=== PATIENT | female | born 1990 | race Caucasian/White ===

== ENCOUNTER 2020-11-08 00:12 | Inpatient (IN) | payer MEDICAID, OTHER ==
[2020-11-08] MEDS ORDERED: LACTATED RINGERS 1,000 ML ONE (01:10)
[2020-11-08] MEDS ORDERED: ONDANSETRON 4 MG/2 ML INJ IV PRN ×2 (01:36→16:00)
[2020-11-08] MEDS ORDERED: miSOPROStol 200 MCG TAB PR PRN (01:36)
[2020-11-08] MEDS ORDERED: LOPERAMIDE 2 MG CAP PO PRN (01:36)
[2020-11-08] MEDS ORDERED: OXYTOCIN 10 UNIT/1 ML INJ IM PRN (01:36)
[2020-11-08] MEDS ORDERED: METHYLERGONOVINE MALEATE 0.2 MG/ML VIAL IM PRN (01:36)
[2020-11-08] MEDS ORDERED: BUTORPHANOL 2 MG/1 ML INJ IV PRN ×2 (01:36→02:14)
[2020-11-08] MEDS ORDERED: ePHEDrine SULFATE 50 MG/1 ML INJ IV PRN ×2 (01:36→15:30)
[2020-11-08] MEDS ORDERED: CARBOPROST TROMETHAMINE 250 MCG/1 ML INJ IM PRN (01:36)
[2020-11-08] MEDS ORDERED: TERBUTALINE 1 MG/1 ML INJ SUB-Q PRN ×2 (01:36→02:14)
[2020-11-08] MEDS ORDERED: LIDOCAINE (2%) 20 MG/1 ML VIAL 20 ML MDV INFILTRATI ONE ×3 (01:36→13:30)
[2020-11-08] MEDS ORDERED: MINERAL OIL 30 ML ORAL LIQD PO PRN (01:36)
[2020-11-08] MEDS: LACTATED RINGERS 1,000 ML IV SCH ×3 (02:00→11:36)
[2020-11-08] MEDS ORDERED: OXYTOCIN DRIP 30 UNITS/500 ML BAG IV SCH ×2 (02:00)
[2020-11-08 02:11] LABS: Hematocrit 29.9 % (30.3-42.9); Hemoglobin 10.3 gm/dl (10.1-14.3); Mean Corpuscular HGB Conc 34 % (30-34); Mean Corpuscular Volume 76 fl (79-97); Platelet Count 324 K/mm3 (140-440); Red Blood Count 3.95 M/mm3 (3.65-5.03); Red Cell Distribution Width 16.6 % (13.2-15.2)
[2020-11-08] MEDS ORDERED: ACETAMINOPHEN 325 MG TAB PO PRN (02:14)
[2020-11-08] MEDS ORDERED: fentaNYL 100 MCG/2 ML INJ IV PRN (02:14)
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
[2020-11-08] MEDS: BUTORPHANOL 2 MG/1 ML INJ IV PRN ×2 (09:23→13:08)
[2020-11-08] MEDS ORDERED: fentaNYL-BUPIV 2 MCG/ML-0.125% 200 MCG/100 ML BAG EPIDURAL ONE (13:53)
--- NOTE | 2020-11-08 14:15 | Anesthesia Consultation ---
Anesthesia Consult and Med Hx Date of service: 11/08/20 - Airway Anesthetic Teeth Evaluation: Good ROM Head & Neck: Adequate Mental/Hyoid Distance: Adequate Mallampati Class: Class II Intubation Access Assessment: Good - Pulmonary Exam CTA: Yes - Cardiac Exam Cardiac Exam: RRR - Pre-Operative Health Status Proposed Anesthetic Plan: Epidural - Pulmonary Hx Asthma: No - Cardiovascular System Hx Hypertension: No - Other Systems Hx Alcohol Use: No
--- NOTE | 2020-11-08 14:20 | Progress Note ---
Labor Epidural - Labor Epidural Start Time: 13:50 Stop Time: 14:05 Performed by:: ROCIO BOLTON Procedure: Patient is requesting epidural for labor and pain. H&P, labs were reviewed. Patient IDed, H&P reviewed, all questions and concerns were answered, and consent was signed. Timeout was performed at bedside. Patient in sitting position. Sterile prep and drape was performed. 3ml of 1% lidocaine skin wheal at L[3]- L [4]. 18-gauge Tuohy epidural needle was advanced to loss of resistance with air technique cm. Negative CSF negative blood. Epidural catheter advanced to [16] centimeters. [negative] Aspiration [negative] test dose. Sterile dressing applied. Patient tolerated procedure.
[2020-11-08] MEDS ORDERED: NALOXONE 2 MG/2 ML INJ IV PRN (15:00)
--- NOTE | 2020-11-08 15:21 | Procedure Note ---
OB Delivery Note - Delivery Date of Delivery: 11/08/20 Surgeon: LORA GRIER Estimated blood loss: other (150 cc) - Vaginal Delivery presentation: vertex Delivery position: OA Intrapartum events: none Delivery induction: none Delivery augmentation: pitocin Delivery monitor: external FHT, external uterine Route of delivery: Delivery placenta: spontaneous Delivery cord: 3 umbilical vessels Episiotomy: none Delivery laceration: none Anesthesia: epidural Delivery comments: Spontaneous vaginal delivery at 14:59 of liveborn male weighing 5 lb. 14 oz. over intact perineum with apgars of 8/9. Tight nuchal cord and body cord. Baby placed skin to skin with mom immediately after delivery and bulb suctioned, dried with warm blanket, and stimulated. Spontaneous cry and respirations. 3 vessel cord double clamped and cut and baby taken to radiant warmer for further suctioning. Spontaneous delivery of intact placenta and membranes by hammer mechanism at 15:01. Pitocin to IV fluids after delivery of placenta. EBL 150 cc. Fundus firm and midline. No lacerations noted. Sponge count correct. Mother and baby stable in birthing room.
[2020-11-08] MEDS ORDERED: fentaNYL-BUPIV 2 MCG/ML-0.125% 200 MCG/100 ML BAG EPIDURAL SCH (15:30)
[2020-11-08] MEDS ORDERED: diphenhydrAMINE 25 MG CAP PO PRN (16:00)
[2020-11-08] MEDS ORDERED: WITCH HAZEL/ GLYCERIN PAD TP PRN (16:00)
[2020-11-08] MEDS ORDERED: HYDROCORTISONE 25 MG RECTAL SUPP PR PRN (16:00)
[2020-11-08] MEDS ORDERED: LANOLIN/ZINC/DIMETHICONE (LANSINOH) 7 GM TP PRN (16:00)
[2020-11-08] MEDS: HYDROcodone/ACETAMINOPHEN 5-325 MG TAB PO PRN (19:18)
[2020-11-08] MEDS: DOCUSATE SODIUM 100 MG CAP PO SCH (21:30)
[2020-11-08] MEDS ORDERED: MAGNESIUM HYDROXIDE (MOM) ORAL LIQD UDC PO PRN (22:00)
[2020-11-09] MEDS: HYDROcodone/ACETAMINOPHEN 5-325 MG TAB PO PRN ×2 (05:46→18:30)
[2020-11-09 05:58] LABS: Hematocrit 29.3 % (30.3-42.9); Hemoglobin 9.5 gm/dl (10.1-14.3)
--- NOTE | 2020-11-09 09:51 | Progress Note ---
Assessment and Plan PPD#1 Continue routine PP care plan for d/c to home tomorrow Herbert Perera MD Subjective - Subjective Date of service: 11/09/20 Interval history: continue routine PP care. Discharge to home tomorrow Herbert Perera MD Patient reports: appetite normal, voiding normally, pain well controlled, ambulating normally : doing well Objective - Vital Signs Latest vital signs: Vital Signs Temp Pulse Resp BP BP Pulse Ox Pulse Ox 11/09/20 06:46 18 11/09/20 05:46 18 11/09/20 00:36 98.0 F 97 H 20 105/66 97 11/08/20 21:00 100 11/08/20 20:59 98.2 F 96 H 18 105/71 97 11/08/20 20:18 18 11/08/20 16:55 98.9 F 90 16 115/69 100 100 11/08/20 16:17 98.3 F 74 14 112/71 99 11/08/20 16:16 85 112/71 11/08/20 16:12 88 100 11/08/20 16:07 84 99 11/08/20 16:02 84 99 11/08/20 15:57 89 99 11/08/20 15:52 81 99 11/08/20 15:50 87 93 11/08/20 15:47 74 99 11/08/20 15:42 72 99 11/08/20 15:37 73 100/59 98 11/08/20 15:32 73 99 11/08/20 15:27 83 99 11/08/20 15:22 85 101/68 99 11/08/20 15:17 83 98 11/08/20 15:14 26 L 80 L 11/08/20 15:12 84 98 11/08/20 15:07 83 101/67 96 11/08/20 15:06 88 11/08/20 14:58 70 83 L 11/08/20 14:54 82 98 11/08/20 14:52 83 119/75 11/08/20 14:49 80 97 11/08/20 14:44 84 99 11/08/20 14:39 76 98 11/08/20 14:36 75 113/71 11/08/20 14:34 76 98 11/08/20 14:31 76 105/61 11/08/20 14:29 79 97 11/08/20 14:27 80 111/62 11/08/20 14:24 84 97 11/08/20 14:22 98.4 F 78 14 99/55 100 11/08/20 14:21 77 99/55 11/08/20 14:19 84 98 11/08/20 14:16 78 113/66 11/08/20 14:14 77 99 11/08/20 14:10 83 123/72 11/08/20 14:09 84 99 11/08/20 14:08 80 120/69 11/08/20 14:05 84 135/74 11/08/20 14:04 85 99 11/08/20 14:01 73 113/68 11/08/20 13:59 86 99 11/08/20 13:58 81 115/65 11/08/20 13:55 83 111/60 11/08/20 13:53 77 111/62 11/08/20 13:23 77 112/65 11/08/20 12:27 98.0 F 81 16 108/75 11/08/20 12:26 81 108/75 11/08/20 12:22 74 107/69 11/08/20 11:22 75 109/64 11/08/20 10:21 103 H 117/67 Intake and Output 11/08/20 11/09/20 11/09/20 23:59 07:59 15:59 Intake Total 415 480 Output Total 550 200 Balance -135 280 Intake: IV 175 PITOCin/NS 30 UNIT/500ML 165 30 units In 500 ml @ 40 mls/hr IV TITR ANALY Rx#: [id number] Right Forearm 10 Oral 480 Intake, Free Water 240 Output: Urine 550 200 Void 550 200 Other: Total, Intake Amount 480 Total, Output Amount 200 200 - Exam Breasts: Present: deferred Cardiovascular: Present: Regular rate Lungs: Present: Clear to auscultation Abdomen: Present: normal appearance, soft, normal bowel sounds Vulva: both: normal Uterus: Present: fundal height below umbilicus Extremities: Present: normal Deep Tendon Reflex Grade: Normal but brisk +3 Comments: lochia mild - Labs Labs: Abnormal lab results 11/09/20 Range/Units 05:22 Hgb 9.5 L (10.1-14.3) gm/dl Hct 29.3 L (30.3-42.9) %
--- NOTE | 2020-11-09 09:51 | Discharge Summary ---
Providers - Providers Date of Admission: 11/08/20 02:14 Date of discharge: 11/10/20 Attending physician: JOE BROWN JR, MD Primary care physician: JOE BROWN JR, MD Hospitalization Delivery: Episiotomy: none Laceration: none Discharge diagnosis: IUP at term delivered Condition at discharge: Stable Disposition: 01 HOME / SELF CARE / HOMELESS Plan - Provider Discharge Summary Activity: no sex for 6 weeks Additional instructions: [] Smoking cessation referral if applicable(refer to patient education folder for contact #) [] Refer to [facility] Booklet Call your doctor immediately for: * Fever > 100.5 * Heavy vaginal bleeding ( >1 pad per hour) * Severe persistent headache * Shortness of breath * Reddened, hot, painful area to leg or breast * Drainage or odor from incision. * Keep incision clean and dry at all times and follow doctor's instructions regarding bathing/showering - Follow up plan Follow up: JOE BROWN JR, MD [Primary Care Provider] - 7 Days Forms: [facility] Discharge Summary
[2020-11-09] MEDS: DOCUSATE SODIUM 100 MG CAP PO SCH ×2 (10:55→21:13)
[2020-11-09] MEDS: FERROUS SULFATE 325 MG TAB PO SCH ×2 (10:55→21:13)
--- NOTE | 2020-11-09 12:21 | Post Anesthesia Evaluation ---
- Post Anesthesia Evaluation Patient Participated: Yes Airway Patent: Yes Stable Respiratory Function: Yes Nausea/Vomiting: No Temp > 96.8F: Yes Pain Manageable: Yes Adequeate Hydration: Yes Anesthesia Complications: No Block Receding Appropriately: Yes Patient on Ventilator: No
[2020-11-10] MEDS: ACETAMINOPHEN 325 MG TAB PO PRN ×2 (06:32→16:05)
[2020-11-10] MEDS: FERROUS SULFATE 325 MG TAB PO SCH (09:16)
[2020-11-10] MEDS: DOCUSATE SODIUM 100 MG CAP PO SCH (09:16)
[2020-11-10 17:34] VITALS: BP 124/77
== END 2020-11-10 16:17 | disposition home or self-care (01) | DRG 807 ==
LOC: TRG 00:12 → APU 00:28 → TRG 02:14 → LD 02:14 → OB 17:14
PROVIDERS: ADMIT Obstetrics & Gynecology; ATTEND Obstetrics & Gynecology
PROC: 10E0XZZ Delivery of Products of Conception, External Approach (ICD-10-PCS; principal; 2020-11-08)
PROC: 3E0R3BZ Introduction of Anesthetic Agent into Spinal Canal, Percutaneous Approach (ICD-10-PCS; 2020-11-08)
PROC: 00HU33Z Insertion of Infusion Device into Spinal Canal, Percutaneous Approach (ICD-10-PCS; 2020-11-08)
DX: O80 Encounter for full-term uncomplicated delivery (principal); Z37.0 Single live birth; Z3A.37 37 weeks gestation of pregnancy; O99.02 Anemia complicating childbirth; D64.9 Anemia, unspecified; Z20.822 Contact with and (suspected) exposure to COVID-19
CPT/HCPCS: 36415; 85014; 85018; 85027; 86850; 86900; 86901; 96360; G0378; J0595; J2590; J7120; U0003